=== PATIENT | male | born 1985 | race African-American/Black ===

== ENCOUNTER 2022-08-30 20:57 | Emergency (ER) | payer SELFPAY ==
[~2022-08-30] VITALS: Ht 175.3 cm; Wt 145.0 kg
[2022-08-30 21:04] VITALS: BP 135/65
== END 2022-08-30 22:22 | disposition home or self-care (01) ==
LOC: ER 20:57
DX: Z00.8 Encounter for other general examination (principal); Z53.21 Procedure and treatment not carried out due to patient leaving prior to being seen by health care provider
CPT/HCPCS: 99281